=== PATIENT | male | born 2000 | race Caucasian/White ===

== ENCOUNTER 2024-07-22 20:32 | Emergency (ER) | payer BC, SELFPAY ==
[2024-07-22 20:33] VITALS: BP 143/70; PULSE 93; RESP 15; TEMP 36; O2SAT 98; BMI 29.0
[2024-07-22 20:35] VITALS: BP 143/70; PULSE 93; RESP 17; TEMP 36.1; O2SAT 98
--- NOTE | 2024-07-22 20:54 | EDS_ITS ---
HPI <BRADLEY Figueroa - Last Filed: 07/22/24 21:30> History of Present Illness Chief Complaint: Wound Check Narrative Narrative: Patient presenting today due to concerns for an infection to the left side of his face that started on Wednesday. He reports that it started off as a small pimple, the area then became larger and painful, he went to urgent care yesterday and they performed an I&D of the area. They only noticed a small amount of blood and pus, they cultured the area and placed him on a course of Bactrim. He has had 3 doses of this medication so far. He reports that this evening the swelling became worse to the left side of his face, prompting him to come in for evaluation. He has had subjective fevers and chills at home. He is otherwise healthy with no chronic medical conditions. He has been able to eat and drink without difficulty. He has had no nausea or vomiting. PFSH <BRADLEY Figueroa - Last Filed: 07/22/24 21:30> [facility] Home Medications ?Medication ?Instructions ?Recorded ?Last Taken ?Type cephalexin 500 mg capsule 500 mg PO Q6 7 days #28 CAPS ULES 07/22/24 Unknown Rx Allergy/AdvReac Type Severity Reaction Status Date / Time prochlorperazine (From Allergy Unknown PT UNSURE Verified 07/22/24 20:33 Compazine) OF REACTION Social History Smoking Status: Current every day smoker tobacco type: cigarettes ROS <BRADLEY Figueroa - Last Filed: 07/22/24 21:30> ROS ED Constitutional Constitutional ED: Reports chills, fever(s) and subjective Cardiovascular Cardiovascular: Denies chest pain Respiratory/Chest Respiratory/Chest: Denies dyspnea Gastrointestinal Gastrointestinal: Denies abdominal pain, nausea or vomiting Musculoskeletal Musculoskeletal: Denies arthralgias or myalgias Integumentary Reports other Details: Infected pimple to the left side of the face EXAM <BRADLEY Figueroa - Last Filed: 07/22/24 21:30> Physical Exam Const Vital Signs: 07/22/24 20:33 07/22/24 20:35 07/22/24 21:26 Temperature 96.8 F L 97 F L 97 F L Temperature Source Temporal Oral Pulse Rate 93 93 93 Respiratory Rate 15 17 17 Blood Pressure 143/70 H 143/70 H 143/70 H Blood Pressure Mean 94 94 94 Pulse Ox 98 98 98 Oxygen Delivery Method Room Air Room Air Positive well nourished, well developed and no apparent distress General Appearance ED: well developed HEENT Reports normocephalic and head/scalp atraumatic Mouth ED: Yes moist mucous membranes normal Eyes PERRL and EOMs intact bilaterally Neck full ROM and supple Chest Wall inspection of chest normal Resp normal respiratory effort and clear to auscultation bilaterally Cardio regular rate and regular rhythm GI soft to palpation, non-tender, non-distended and no masses Back/Spine normal ROM and normal to inspection Extremity normal to inspection and full ROM Neuro moves all extremities, no focal motor deficits and no sensory deficits noted Sensorium / Orientation: awake and alert Psych mental status grossly normal and thought process normal Skin Skin Narrative: Either an infected ingrown hair or pimple to the left cheek with surrounding erythema and induration, no fluctuance, soft tissue swelling to the left side of the face. <Dr. Cirilo Ritchie DO - Last Filed: 07/22/24 22:10> Physical Exam Const Vital Signs: 07/22/24 20:33 07/22/24 20:35 07/22/24 21:26 Temperature 96.8 F L 97 F L 97 F L Temperature Source Temporal Oral Pulse Rate 93 93 93 Respiratory Rate 15 17 17 Blood Pressure 143/70 H 143/70 H 143/70 H Blood Pressure Mean 94 94 94 Pulse Ox 98 98 98 Oxygen Delivery Method Room Air Room Air [facility] <BRADLEY Figueroa - Last Filed: 07/22/24 21:30> [facility] Narrative Medical decision making narrative: Patient presenting today due to concerns for an infection to the left side of his face. He has what appears to be either a pimple or infected ingrown hair with surrounding erythema and induration as well as facial soft tissue swelling. He does not have any fluctuance to the area, and ultrasound was used to examine the area and there is no obvious fluid collection that can be I&D. He is otherwise nontoxic-appearing and in no acute distress. He is afebrile here. I feel he would benefit from the addition of Keflex. Recommended warm compresses to the area. He should be getting culture results back from the urgent care, we were unable to see any results on clinisync. Return instructions were discussed with him and patient discharged home in stable condition. <Dr. Cirilo Ritchie, DO - Last Filed: 07/22/24 22:10> [facility] History & Record Review Discussion w/independent historian: Patient and Family Additional record(s) reviewed:: Prior outpatient record Treatment and Re-Evaluation :: I have personally performed a face to face assessment of the patient and have reviewed the JAVIER Note. I performed a substantive portion of the visit including all aspects of the following. My fay findings include: History is 23-year-old male presenting to the emergency room with red infected area on the left cheek. Patient states that yesterday he underwent an I&D at an urgent care and was placed on Bactrim. He states they did do a culture. He states he has had 3 doses of the Bactrim. He notes that the areas gotten larger and redder. No history of prior abscesses. Exam is left cheek demonstrates erythema with a central pustule. There is about 2 cm round area of induration without fluctuance. There is not appear to be any ocular involvement. There is no trismus. Medical Decison Making using bedside ultrasound and ultrasound of the area. I do not see a large fluid collection. He has had only 3 doses of Bactrim. I think it is reasonable that we can add in Keflex to improve coverage. I would advise him to be in contact with his urgent care tomorrow to see if the culture is back. Patient to continue to monitor symptoms if he is worsening certainly would request that he have a repeat examination. Discharge Plan Triage Chief Complaint: Wound Check ED Midlevel Provider: Shy Krishna ED Provider: Cirilo Ritchie Dx/Rx/DC Orders Clinical Impression: Facial cellulitis Instructions: ED Cellulitis, Facial Prescriptions: New cephalexin 500 mg capsule 500 mg PO Q6 7 Days Qty: 28 0RF Stand Alone Forms: ED Work / School Excuse Primary Care Provider: Care Physician,No Primary Referrals: Care Physician,No Primary [Primary Care Provider] - Activity Restrictions/Additional Instructions: Follow-up with your PCP, return for any worsening of your symptoms. Apply warm compresses to the area several times daily. Print Language: Greenlandic Disposition Disposition: Home, Self Care Discharge Date/Time: 07/22/24 21:30
[2024-07-22 21:26] VITALS: BP 143/70; PULSE 93; RESP 17; TEMP 36.1; O2SAT 98
[2024-07-22] MEDS: Cephalexin 250 MG Capsule 500 MG PO (21:26)
== END 2024-07-22 21:30 | disposition home or self-care (01) ==
PROVIDERS: Emergency Provider Emergency Medicine; Visit Provider Emergency Medicine
DX: L03.211 Cellulitis of face (principal); F17.210 Nicotine dependence, cigarettes, uncomplicated
CPT/HCPCS: 99282